=== PATIENT | female | born 1980 | race Hispanic/Latino ===

== ENCOUNTER 2018-06-11 07:08 | Day surgery (SDC) | payer BC ==
[2018-06-09 09:48] LABS: Absolute Monocytes 0.4 K/uL (0.1-1.3); Absolute Neutrophil 3.7 K/uL (1.8-8.0); Basophils % 0.6 % (0-1.3); Eosinophils % 1.8 % (0-4.4); Hematocrit 36.8 % (36.0-45.0); Lymphocytes % 31.7 % (15.3-44.8); MCH 28.7 pg (27.0-35.0); MCV 84.7 fL (80-100); MPV 9.6 fL (7.6-11.3); Monocytes % 5.9 % (3.3-12.3); RBC Red Blood Cell Count 4.34 M/uL (3.86-4.86)
[2018-06-09 10:02] LABS: BUN Blood Urea Nitrogen 10 mg/dL (7-18); Bicarbonate 27 mmol/L (21-32); Glucose Level 109 mg/dL (74-106); Sodium Level 138 mmol/L (136-145)
[2018-06-09 17:47] LABS: Albumin 3.8 g/dL (3.4-5.0); Bilirubin Direct 0.1 mg/dL (0-0.2); Bilirubin Total 0.4 mg/dL (0.2-1.0)
[2018-06-11] MEDS ORDERED: PROPOFOL 200 MG/20 ML VIAL IV ONE (07:20)
[2018-06-11] MEDS ORDERED: Ringers Lactate 1,000 ML IV ONE (07:21)
[2018-06-11] MEDS ORDERED: FENTANYL CITR 100 MCG/2 ML ONE (07:21)
[2018-06-11] MEDS ORDERED: ONDANSETRON HCL 40 MG/20 ML VIAL ONE (07:22)
[2018-06-11] MEDS ORDERED: LIDOCAINE 1% MPF 2 ML AMPULE ONE (07:22)
[2018-06-11] MEDS ORDERED: ROCURONIUM 50 MG/5 ML VIAL IV ONE (07:22)
[2018-06-11] MEDS ORDERED: MIDAZOLAM HCL 2 MG/2 ML INJ ONE (07:22)
[2018-06-11] MEDS: CEFOXITIN/SWI 1gm 1 GM/10 ML SYR ONE ×2 (08:09→08:25)
[2018-06-11] MEDS ORDERED: DEXAMETHASONE 10 MG/ML VIAL ONE (09:28)
[2018-06-11] MEDS ORDERED: GLYCOPYRROLATE 0.2 MG/ML SYR ONE ×2 (09:28)
[2018-06-11] MEDS ORDERED: NEOSTIGMINE 1 MG/ML -5 ML SYRINGE ONE (09:29)
[2018-06-11] MEDS ORDERED: Mastisol Adhesive Liq ONE (09:29)
--- NOTE | 2018-06-11 09:48 | P.BOP ---
Preoperative diagnosis: symptomatic cholelithiasis, cholecystitis Postoperative diagnosis: same Primary procedure: Laparoscopic cholecystectomy Estimated blood loss: <10cc Specimen: gb Findings: as above Anesthesia: General Complications: None Transferred to: Recovery Room Condition: Good
[2018-06-11] MEDS: MEPERIDINE HCL 50 MG/ML AMP ONE ×2 (09:59→10:04)
[2018-06-11] MEDS ORDERED: ONDANSETRON 4 MG/2 ML VIAL ONE (10:01)
[2018-06-11] MEDS: MORPHINE 4 MG/ML SYR ONE ×2 (10:12→10:18)
[2018-06-11] MEDS ORDERED: MORPHINE 4 MG/ML SYR ONE (10:25)
[2018-06-11] MEDS ORDERED: CODEINE 30MG/APAP 300MG TAB ONE (11:03)
--- NOTE | 2018-06-11 16:25 | OP ---
Surgeon: Mannie Lange MD Diagnosis: Symptomatic cholelithiasis, cholecystitis. Procedure: Laparoscopic cholecystectomy. Disposition: Home. Activity: As tolerated. No heavy lifting. Followup: Follow up in my office in 1 week. Call for appointment [phone]. Keep area dry for 48 ho urs, then may shower. Keep Steri-Strips intact. Medications: Include Bactrim DS p.o. b.i.d. and Tylenol No. 3 q.4 hours p.r.n. pain and Phenergan 25 mg p.o. q.6 hours p.r.n. nausea. AGUSTÍN/NANCIE Voice ID: [id number] Report ID: [id number]
--- NOTE | 2018-06-11 16:25 | OP ---
Date of Procedure: 06/11/2018 Surgeon: Mannie Lange MD Preoperative Diagnosis: Symptomatic cholelithiasis and cholecystitis. Postoperative Diagnosis: Symptomatic cholelithiasis and cholecystitis. Procedure: Laparoscopic cholecystectomy. Anesthesia: General plus local. Indications: This is the case of a 38-year-old patient, comes to us with above diagnosis. Fully exp lained the benefits, alternatives, and risks of laparoscopic, possible open cholecystectomy which inc lude, but are not limited to infection, bleeding, damage to adjacent structures, anesthesia complicat ion, choledocholithiasis, bile leak, pancreatitis, [place], and even . She also understands this may not relieve any symptoms. She might need more than one surgical intervention. She understood and s igned the consent. Description Of Procedure: The patient was brought to the operating room and placed in supine positio n. Anesthesia was done without complication. Abdominal area was prepped and draped in a sterile fas hion. Marcaine 0.5% injected for local anesthetic. The patient has a previous abdominoplasty, so we re-opened the incisions in the periumbilical region. Incision was carried down to fascia, which was opened under direct vision. Peritoneum was encountered, opened under direct vision. Vicryl #1 plac ed inside the fascia. Jeanne trocar was carefully introduced. No bleeding was obtained. I placed 3 more trocars, 5 mm each one of them under direct visualization on the right upper quadrant. A grasp er was placed in the fundus of the gallbladder, another grasper in the infundibulum retracting the ga llbladder in the inferolateral fashion exposing triangle of Calot and obtaining critical view of safe ty. The cystic duct and cystic artery were clearly isolated free circumferentially and a connection between those and the gallbladder were clearly identified. I proceeded to ligate those by using at l east 3 clips proximal, 1 clip distal, ligation in the middle. Same was done with the cystic artery. A small tiny branch of the cystic artery was also ligated. Hepatic arteries and common bile duct we re protected at all times. The area was inspected once again. Clips were intact after removing the gallbladder with an EndoCatch and we inspected the area once again. Clips were intact. No bile leak . No bleeding. At that moment, I proceeded to remove the trocars under direct vision. Deflated pne umoperitoneum. Closed the fascia with #1 Vicryl. Irrigated subcutaneous tissue, closed that with 3- 0 chromic, and skin in a subcuticular fashion with 3-0 chromic and Steri-Strips on top. Sponge count and instrument counts were correct. The patient tolerated the procedure well. The patient was sent to recovery in stable condition. AGUSTÍN/NANCIE Voice ID: [id number] Report ID: [id number]
== END 2018-06-11 12:45 | disposition home or self-care (01) ==
LOC: OR 07:08
PROVIDERS: ATTEND Surgery
PROC: 0FT44ZZ Resection of Gallbladder, Percutaneous Endoscopic Approach (ICD-10-PCS; principal; 2018-06-11 08:15)
DX: K80.10 Calculus of gallbladder with chronic cholecystitis without obstruction (principal); R10.11 Right upper quadrant pain
CPT/HCPCS: 36415; 80048; 80076; 82150; 83690; 85025; 88304; J1100; J2001; J2175; J2250; J2405; J2710; J3010

== ENCOUNTER 2023-01-22 08:40 | Emergency (ER) | payer OTHER ==
--- OUTSIDE RECORDS SUMMARY | 2023-01-22 08:46 | XMS REPORT | Continuity of Care Document ---
:1980 Author Organization [facility] t Address [address] [place] [address] Care Team Providers Name Role Phone Radiology Attending Clinician Unavailable RADIOLOGY Attending Clinician Unavailable DR BANDAR CALLAWAY Attending Clinician Unavailable Linda Meraz MD Attending Clinician LINDA MERAZ Attending Clinician Unavailable Doctor Unassigned, [place] Attending Clinician Unavailable DR BANDAR CALLAWAY Admitting Clinician Unavailable Payers Payer Name Policy Type Policy Number Effective Date Expiration Date S ource Problems Condition Condition Condition Status Onset Resolution Last Treating Co mments Source Name Details Category Date Date Treatment Clinician Date Pelvic Pelvic Disease Active Univers pain in pain in 6-21 ity of female female 00:00: [address] Abnormal Abnormal Disease Active Unive rs uterine uterine 04-24 ity of bleeding bleeding 00:00: [place] (AUB) (AUB) 00 [facility] Anemia Anemia Disease Active Univers 04-24 ity of 00:00: [address] S/P S/P Disease Active Univers hysterecto hysterecto 04-24 it y of my my 00:00: [address] Allergies, Adverse Reactions, Alerts Allergy Allergy Status Severity Reaction(s) Onset Inactive Treating Comm ents Source Name Type Date Date Clinician NO KNOWN Drug Active Univers ALLERGIE Class ity of S [facility] No Known DA Active [facility] Allergie Medical s [place] Social History Social Habit Start Date Stop Date Quantity Comments Source Sex Assigned At Universit y of [facility] Exposure to Not sure University of SARS-CoV-2 [facility] (event) [place] Tobacco use and 2016-04-30 2016-04-30 Never used Universit y of exposure 00:00:00 00:00:00 [facility] Alcohol intake 2016-04-30 2016-04-30 Current University of 00:00:00 00:00:00 non-drinker of [facility] alcohol Branch (finding) Smoking Status Start Date Stop Date Source Never smoker [facility] Medical Branch Medications Ordered Filled Start Stop Current Ordering Indication Dosage Frequency Signature Comments Components Source Medication Medication Date Date Medication? Clinician (SIG) Name Name iohexol 2020- No 120mL 120 mL, Unive rs (OMNIPAQUE 2-10 02-10 Intravenou it y of 350 19:30: 19:30 s, ONCE, 1 [place] BULK-150 00 :00 dose, Wed Medica l mL) 12/14/20 at Branch injection 1330, 120 mL Routine metFORMIN Yes 500mg Take 500 Uni vers (GLUCOPHAGE 6-23 mg by ity of ) 500 mg 15:16: mouth 2 [place] tablet 52 (two) Medical times Branch daily with meals. Iron-Folic Yes 1{capsu Take 1 Un ciro Acid-Mv, 6-23 le} capsule by ity o f Min Cmb#15 15:16: mouth [place] (HEMOCYTE-P 52 daily. Medica l ALYSSA) 106 mg Branch iron- 1 mg Cap metFORMIN Yes 500mg Take 500 Uni vers (GLUCOPHAGE 6-23 mg by ity of ) 500 mg 15:16: mouth 2 [place] tablet 52 (two) Medical times Branch daily with meals. Iron-Folic Yes 1{capsu Take 1 Un ciro Acid-Mv, 6-23 le} capsule by ity o f Min Cmb#15 15:16: mouth [place] (HEMOCYTE-P 52 daily. Medica l ALYSSA) 106 mg Branch iron- 1 mg Cap metFORMIN Yes 500mg Take 500 Uni vers (GLUCOPHAGE 6-23 mg by ity of ) 500 mg 15:16: mouth 2 [place] tablet 52 (two) Medical times Branch daily with meals. Iron-Folic Yes 1{capsu Take 1 Un ciro Acid-Mv, 6-23 le} capsule by ity o f Min Cmb#15 15:16: mouth [place] (HEMOCYTE-P 52 daily. Medica l ALYSSA) 106 mg Branch iron- 1 mg Cap acetaminoph Yes 2{tbl} Take 2 Un ciro en-codeine 6-23 tablets by ity of (TYLENOL 00:00: mouth [place] #3) 300-30 00 every 4 Medica l mg tablet (four) Branch hours as needed for Pain (scale 1-3). ibuprofen Yes 800mg Take 1 Unive rs (MOTRIN) 6-23 tablet by ity of 800 mg 00:00: mouth [place] tablet 00 every 8 Medical (eight) Branch hours as needed for Pain (scale 1-3). promethazin Yes 12.5mg Take 10 mL Univers e 6-23 by mouth ity of (PHENERGAN) 00:00: every 4 Michael as 6.25 mg/5 00 (four) Medical mL solution hours as Bran ch needed for Nausea and Vomiting (N/V). acetaminoph Yes 2{tbl} Take 2 Un ciro en-codeine 6-23 tablets by ity of (TYLENOL 00:00: mouth [place] #3) 300-30 00 every 4 Medica l mg tablet (four) Branch hours as needed for Pain (scale 1-3). ibuprofen Yes 800mg Take 1 Unive rs (MOTRIN) 6-23 tablet by ity of 800 mg 00:00: mouth [place] tablet 00 every 8 Medical (eight) Branch hours as needed for Pain (scale 1-3). promethazin Yes 12.5mg Take 10 mL Univers e 6-23 by mouth ity of (PHENERGAN) 00:00: every 4 [place] as 6.25 mg/5 00 (four) Medical mL solution hours as Bran ch needed for Nausea and Vomiting (N/V). acetaminoph Yes 2{tbl} Take 2 Un ciro en-codeine 6-23 tablets by ity of (TYLENOL 00:00: mouth [place] #3) 300-30 00 every 4 Medica l mg tablet (four) Branch hours as needed for Pain (scale 1-3). ibuprofen Yes 800mg Take 1 Unive rs (MOTRIN) 6-23 tablet by ity of 800 mg 00:00: mouth [place] tablet 00 every 8 Medical (eight) Branch hours as needed for Pain (scale 1-3). promethazin Yes 12.5mg Take 10 mL Univers e 6-23 by mouth ity of (PHENERGAN) 00:00: every 4 Michael as 6.25 mg/5 00 (four) Medical mL solution hours as Bran ch needed for Nausea and Vomiting (N/V). Vital Signs Vital Name Observation Time Observation Value Comments Source Height 2020-11-15 07:29:00 154.94 CM Weight 2020-11-15 07:29:00 72.12 KG Height 2020-11-10 12:55:00 154.94 CM Weight 2020-11-10 12:55:00 72.57 KG Procedures Procedure Date / Time Performed Performing Clinician Leonid e CT ABDOMEN PELVIS W WO 2020-12-14 19:28:14 [facility] 2020-12-14 19:21:00 Radiology [facility] CONSENT/REFUSAL FOR 2020-12-14 18:51:00 Doctor Unassigned, [facility] TREATMENT ASSIGNMENT OF BENEFITS 2020-12-14 18:50:49 Doctor Unassigned, No [facility] EXCISION TONSILS 2020-11-15 00:00:00 Estrella Green ical EXTERNAL APPROACH Center EXCISION LT VC 2020-11-15 00:00:00 Estrella Medi carol STORMY/ARTIF OPEN ENDO Center SUPPL LEFT VOCAL CORD 2020-11-15 00:00:00 Munira aldrich Medical AUTO SUB ENDO Center INTRO AI VIA STORMY/ARTIF 2020-11-15 00:00:00 Fantasma vance Medical OPEN ENDO Center XR RIBS 3 VW RIGHT 2020-11-02 18:51:11 Linda Meraz [facility] ASSIGNMENT OF BENEFITS 2020-11-02 18:09:17 Doctor Unassigned, No [facility] Encounters Start End Encounter Admission Attending Care Care Encounter Source Date/Time Date/Time Type Type Clinicians Facility Department ID 2020-12-14 2020-12-14 Hospital Radiology [facility] [id number] Univers 12:55:33 23:59:00 Encounter [place] [id number] ity mary Andrade [id number] Maria Elena [facility] [id number] Medi carol 801 Branch 2020-12-14 2020-12-14 Outpatient R RADIOLOGY [facility] [id number] Univers 00:00:00 00:00:00 [facility] of [place] [facility] 2020-11-15 2020-11-15 Outpatient C CESIA, [facility] [id number] Estrella 07:03:00 14:32:00 [facility] 2020-11-02 2020-11-[address] [facility] [id number] Univers 12:00:00 23:59:00 Encounter [id number] [facility] [id number] [facility] [id number] [facility] 807 [place] 2020-11-02 2020-11-02 Outpatient R [facility] [id number] Univers 00:00:00 00:00:00 [facility] 2020-11-02 2020-11-02 Orders Doctor HUMPHREY [id number] Univers 00:00:00 00:00:00 Only Unassigned, JOSHUA [id number] ity of [place] [facility] [id number] [facility] [id number] [address] Results Test Description Test Time Test Comments Results Result Comments Source POCT CREATININE 2020-12-14 20:20:00 Test Item Value Reference Range Interpretation Comme nts POCT Creatinine (test code = [id number]) 0.6 mg/dL 0.5-1.1 Lab Interpretation (test code = 82276-3) [facility] W WO [id number] 19:41:15CT Abdomen and Pelvis without and with intravenous contrast. CLINICAL HISTORY: Abdominal pain. DOSE:Up-to-date CT equipment and radiation dose reduction techniques wereemployed. CTDIvol: 6.95+6.92 mGy. DLP: 346+345 mGy-cm. TECHNIQUE : Contiguous axial imaging from the level of the lung basesthrough the pubic symphysis were performed initially without contrast andsubsequently after the uncomplicated administration of Omnipaque contrastmaterial. Coronal and sagittal reconstructions were obtained. Auto mAand/or iterative reconstruction were used to reduce radiation dose. FINDINGS: Comparison has beenmade with 06/13/2016 studies. Lower lungs: Clear. No pleural effusion or pericardial effusion. Liver,Gallbladder and Spleen: S/P cholecystectomy. Liver is enlarged, 19cm in length and showed diffuse hepatic steatosis. Spleen measuresapproximately 10.8 x 6 cm. Hepatic/portal venous systems appear patent .Biliary ducts and the pancreatic duct appear of normal size. Peritoneum: ?No free air or free fluid. No lymphadenopathy. Pancreas and Adrenals: ?Unremarkable pancreas and adrenal glands. Kidneys and Ureters: ?No visible calculi in the renal collecting systems. No hydroureter or hydronephrosis. 12 mm low-density lesion in the dorsalcortex of the interpolar region of right kidney is likely a small cyst,slightly increased in size when compared with 2016 study. Vessels: Normal. Retroperitoneum: No abnormal fluid or lymphadenopathy. Bowel: No acute findings. Normal appendix is visualized. Stomach ismoderately distended with food material. Bladder and Reproductive Organs: S/P hysterectomy. Grossly unrem arkable,under distended and unopacified urinary bladder. Bones: Unremarkable. Soft tissues: Suprapubic scar tissue from prior surgery. CONCLUSION:1. No acute intra-abdominal or pelvic abnormalities detected.2. S/P cholecystectomy and hysterectomy.3. Hepatomegaly with hepatic steatosis.4 moderately distended stomach with food material. This could be due torecent meal, however, please correlate with history for possiblegastroparesis with food retention. [facility], Radiant Results Inft User - 12/14/2020 1:42 PM CSTCT Abdomen and Pelvis without and with intravenous contrast.CLINICAL HISTORY: Abdominal pain.DOSE: Up-to-date CT equipment and radiation dose reduction techniques wereemployed. CTDIvol: 6.95+6.92 mGy. DLP: 346+345 mGy-cm.TECHNIQUE : Contiguous axial imaging from the level of the lung basesthrough the pubic symphysis were performed initially without contrast andsubsequently after the uncomplicated administration of Omnipaque contrastmaterial. Coronal and sagittal reconstructions were obtained. Auto mAand/or iterative reconstruction were used to reduce radiation dose.FINDINGS: Comparison has been made with 06/13/2016 studies.Lower lungs: Clear. No pleural effusion or pericardial effusion.Liver, Gallbladder and Spleen: S/P cholecystectomy. Liver is enlarged, 19cm in length and showed diffuse hepatic steatosis. Spleen measuresapproximately 10.8 x 6 cm. Hepatic/portal venous systems appear patent.Biliary ducts and the pancreatic duct appear of normal size.Peritoneum: No free air or free fluid.No lymphadenopathy.Pancreas and Adrenals: Unremarkable pancreas and adrenal glands.Kidneys and Ureters: No visible calculi in the renal collecting systems. No hydroureter or hydronephrosis. 12 mm low-density lesion in the dorsalcortex of the interpolar region of right kidney is likely a small cyst,slightly increased in size when compared with 2016 study. Vessels: Normal.Retroperitoneum: No abnormal fluid or lymphadenopathy.Bowel: No acute findings. Normal appendix is visualized. Stomach ismoderatelydistended with food material.Bladder and Reproductive Organs: S/P hysterectomy. Grossly unremarkable,under distended and unopacified urinary bladder.Bones: Unremarkable.Soft tissues: Suprapubic scar tissue from prior surgery.CONCLUSION:1. No acute intra-abdominal or pelvic abnormalities detected.2. S/P cholecystectomy and hysterectomy.3. Hepatomegaly with hepatic steatosis.4 moderately distended stomach with food material. This could be due torecent meal, however, please correlate with history for possiblegastroparesis with food retention.[facility] 3 VW RIGHT 2020-11-02 20:36:501. ?No evidence of acute injury at the right ribs. 2. ?Right lung is unremarkable. RL: 6600End of report. RL: 6200 ORDERING PHYSICIAN: LISSETTE MERAZ CLINICAL HISTORY:Pleuritic chest pain TECHNIQUE:Radiographs of right ribs, AP and obliqueviews. COMPARISON:None. FINDINGS:Normal right lung. No signs of pleural effusion or pneumothorax. The rightclavicle, scapula, humerus and ribs are unremarkable on all views. No acutefracture evident. Numerous metallic surgical clips at the right upperquadrant abdomen likely from prior cholecystectomy.[facility], Radiant Results Inft User - 11/02/2020 2:38 PM CSTORDERING PHYSICIAN: LINDA GARZAINICAL HISTORY:Pleuritic chest pain TECHNIQUE:Radiographs of right ribs, AP and oblique views. COMPARISON:None .FINDINGS:Normal right lung. No signs of pleural effusion or pneumothorax. The rightclavicle, scapula, humerus and ribs are unremarkable on all views. No acutefracture evident. Numerous metallic surgical clips at the right upperquadrant abdomen likely from prior cholecystectomy.IMPRESSION1. No evidence of acute injury at the right ribs.2. Right lung is unremarkable.RL: 6600End of report.RL: 6200 [facility] UL[facility] [id number] 12:35:04 - DIAG MAMM BILATERAL JANETH CAD DIGITALBILATERAL DIGITAL DIAGNOSTIC MAMMOGRAM 3D/2D WITH CAD: 08/25/2019CLINICAL: Followup to previous exam. Digital breast tomosynthesis was performed in addition to routine CC and MLO views. Current mammographic images were evaluated by either a [employer] M-Vu or a [employer] ImageCheMediSwipeer CAD (computer aided detection system). Comparison is made to exam dated 09/11/2018 mammogram - [facility]. The tissue of both breasts is heterogeneously dense. Thismay lower the sensitivity of mammography. Postoperative changes of prior reduction mammoplasty are again noted.No suspicious mass, architectural distortion, malignant type calcification, or lymph node abnormality detected. INCOMPLETE: ADDITIONAL IMAGING EVALUATION NEEDEDCorrelation was then obtained with same day ultrasound which is reported below.- BREAST ULTRASOUND BILATERALULTRASOUND OF BOTH BREASTS AND BOTH AXILLA: 08/25/2019Comparison is made to exam dated 09/11/2018 mammogram - [facility]. Color flow and real-time ultrasound of both breasts and both axilla were performed. Chan scale images of the real-time examination were reviewed. At the 2 o'clock position of the right breast, 1 cm from the nipple, there is an oval hypoechoic mass measuring 6 x 3 x 5 mm, consistent with a benign fibroadenoma.At the 5 o'clock position of the right breast, 1 cm from the nipple, there is an oval hypoechoic mass measuring 9 x 7 x 6 mm. This is consistent with a benign fibroadenoma.At the 2 o'clock position of the left breast, 1 cm from the nipple, there is an oval hypoechoic mass measu ring 9 x 4 x 7 mm, also consistent with a benign fibroadenoma.No abnormalities were seen sonographically in either axilla. IMPRESSION: BENIGN Benign fibroadenomatous changes. There is no sonographic evidence of malignancy. Resume annual mammogram screening schedule is recommended. Ladonna [place] M.D. yaluis/:08/25/2019 12:35:04 Entry: - 08/28/2019 15:28:20Imaging Technologist: Jennifer LANGE,[facility]-FWletter sent: BIRADS 1-2 Combo FU Letter Mammogram BI-RADS: 0 Incomplete: Additional Imaging Evaluation Needed Ultrasound BI-RADS: 2 BenignDIAG MAMM BILATERAL JANETH CAD [id number] 12:35:04 - DIAG MAMM BILATERAL JANETH CAD DIGITALBILATERAL DIGITAL DIAGNOSTIC MAMMOGRAM 3D/2D WITH CAD: 08/25/2019CLINICAL: Followup to previous exam. Digital breast tomosynthesis was performed in addition to routine CC and MLO views. Current mammographic images were evaluated by either a [employer] M-Vu or a [employer] Image[employer]er CAD (computer aided detection system). Comparison is made to exam dated 09/11/2018 mammogram - [facility]. The tissue of both breasts is heterogeneously dense. Thismay lower the sensitivity of mammography. Postoperative changes of prior reduction mammoplasty are again noted.No suspicious mass, architectural distortion, malignant type calcification, or lymph node abnormality detected. INCOMPLETE: ADDITIONAL IMAGING EVALUATION NEEDEDCorrelation was then obtained with same day ultrasound which is reported below.- BREAST ULTRASOUND BILATERALULTRASOUND OF BOTH BREASTS AND BOTH AXILLA: 08/25/2019Comparison is made to exam dated 09/11/2018 mammogram - [facility]. Color flow and real-time ultrasound of both breasts and both axilla were performed. Chan scale images of the real-time examination were reviewed. At the 2 o'clock position of the right breast, 1 cm from the nipple, there is an oval hypoechoic mass measuring 6 x 3 x 5 mm, consistent with a benign fibroadenoma.At the 5 o'clock position of the right breast, 1 cm from the nipple, there is an oval hypoechoic mass measuring 9 x 7 x 6 mm. This is consistent with a benign fibroadenoma.At the 2 o'clock position of the left breast, 1 cm from the nipple, there is an oval hypoechoic mass measu ring 9 x 4 x 7 mm, also consistent with a benign fibroadenoma.No abnormalities were seen sonographically in either axilla. IMPRESSION: BENIGN Benign fibroadenomatous changes. There is no sonographic evidence of malignancy. Resume annual mammogram screening schedule is recommended. Ladonna gao/:08/25/2019 12:35:04 Entry: - 08/28/2019 15:28:20Imaging Technologist: Jennifer LANGE, [facility]-FWletter sent: BIRADS 1-2 Combo FU Letter Mammogram BI-RADS: 0 Incomplete: Additional Imaging Evaluation Needed Ultrasound BI-RADS: 2 Benign
[2023-01-22] MEDS ORDERED: ONDANSETRON 4 MG (ODT) TAB ONE (09:33)
[2023-01-22 09:34] LABS: Absolute Lymphocytes (CBC) 3.2 K/uL (0.7-4.9); Hematocrit 37.9 % (36.0-45.0); Lymphocytes % 35.2 % (15.3-44.8); MCV 81.8 fL (80-100); MPV 9.1 fL (7.6-11.3); RBC Red Blood Cell Count 4.63 M/uL (3.86-4.86)
[2023-01-22 09:46] LABS: Urine Bacteria <20 /HPF (<20); Urine Bilirubin NEGATIVE (Negative); Urine Blood Negative (Negative); Urine Clarity Clear (Clear); Urine Color Colorless (Yellow); Urine Glucose NEGATIVE (Negative); Urine Mucus Slight /HPF (None Seen); Urine Protein NEGATIVE (Negative); Urine Urobilinogen Normal (Normal)
[2023-01-22 10:06] LABS: Potassium 3.7 mEq/L (3.5-5.1)
[2023-01-22 10:07] LABS: Bilirubin Total 0.7 mg/dL (0.2-1.0)
[2023-01-22 10:08] LABS: Albumin 4.1 g/dL (3.4-5.0); Protein, Total 8.2 g/dL (6.4-8.2)
[2023-01-22] MEDS ORDERED: KETOROLAC 30 MG/ML INJ ONE (11:36)
[2023-01-22] MEDS ORDERED: SIMETHICONE 80 MG TAB ONE (11:36)
--- NOTE | 2023-01-22 12:44 | RAD REPORT ---
EXAM DESCRIPTION: US - Abdomen Exam Limited - 01/22/2023 12:24 pm CLINICAL HISTORY: ABD PAIN COMPARISON: Small Bowel Series dated 08/19/2018 TECHNIQUE: Sonographic grayscale and color flow images of the right upper quadrant were obtained. FINDINGS: The gallbladder has been surgically removed. No fluid collections in the gallbladder bed. The common bile duct is normal measuring 3 mm, without discrete echogenic calculi. The liver demonstrates no findings of intrahepatic biliary dilatation. IMPRESSION: Status post cholecystectomy. No evidence of intra or extrahepatic biliary ductal dilatio n.
--- NOTE | 2023-01-22 13:05 | ER ---
Nurse's Notes [facility] Name: Lulu Torres Age: 42 yrs Sex: Female : 1980 Arrival Date: 01/22/2023 Time: 08:44 Bed 23 Private MD: Diagnosis: Biliary colic Presentation: 01/22 09:01 Chief complaint: Patient states: RUQ pain radiating to flank, feels sharp , worse since iw yesterday and has been vomiting , has had an issue liver in past , elevated enzymes, hx of cholecystectomy. Coronavirus screen: At this time, the client does not indicate any symptoms associated with coronavirus-19. Ebola Screen: Patient negative for fever greater than or equal to 101.5 degrees Fahrenheit, and additional compatible Ebola Virus Disease symptoms Patient denies exposure to infectious person. Patient denies travel to an Ebola-affected area in the 21 days before illness onset. No symptoms or risks identified at this time. Initial Sepsis Screen: Does the patient meet any 2 criteria? No. Patient's initial sepsis screen is negative. Does the patient have a suspected source of infection? No. Patient's initial sepsis screen is negative. Risk Assessment: Do you want to hurt yourself or someone else? Patient reports no desire to harm self or others. Onset of symptoms was January 21, 2023. 09:01 Method Of Arrival: Ambulatory iw 09:01 Acuity: CHANCE 3 iw Triage Assessment: 13:06 General: Appears in no apparent distress. Behavior is calm, cooperative, appropriate tw5 for age, Reports "The pain came back a little bit, but it is much better after you gave me the medication.". Neuro: Level of Consciousness is awake, alert, obeys commands. Historical: - Allergies: 09: No Known Allergies; iw - Home Meds: 09: Omeprazole Oral [Active]; Dicyclomine Oral [Active]; Ondansetron Oral [Active]; iw sertraline oral [Active]; - PMHx: 09: IBS; iw - PSHx: 09: Cholecystectomy; Tonsillectomy; iw - Immunization history:: Flu vaccine is up to date. - Social history:: Smoking status: Patient denies any tobacco usage or history of. Screenin:38 [facility] ED Fall Risk Assessment (Adult) History of falling in the last 3 months, tw5 including since admission No falls in past 3 months (0 pts). Abuse screen: Denies threats or abuse. Denies injuries from another. Nutritional screening: No deficits noted. Tuberculosis screening: No symptoms or risk factors identified. Assessment: 11:38 General: Reports "The pain started over the weekend, but it has gotten worse. I called tw5 my doctor and he stated that I should just come to the ER. I now longer have my gallbladder so I don't know why I am having this burning pain in my side. It is very concerning to me.". Pain: Complains of pain in posterior aspect of right lateral abdomen and anterior aspect of right lateral abdomen Pain currently is 7 out of 10 on a pain scale. Pain began 2-3 days ago. Neuro: Level of Consciousness is awake, alert, obeys commands, Oriented to person, place, time, situation. Cardiovascular: No deficits noted. Respiratory: No deficits noted. GI: Bowel sounds present X 4 quads. Abdomen is tender to palpation in posterior aspect of right lateral abdomen. Derm: No deficits noted. Musculoskeletal: No deficits noted. 11:44 General: Noted pt the only thing she is waiting on is the US. tw5 13:33 Reassessment: Patient states feeling better. tw5 Vital Signs: 09:01 BP 132 / 99; Pulse 85; Resp 16; Temp 98; Pulse Ox 100% on R/A; Weight 81.65 kg; Height iw 5 ft. 0 in. ; Pain 8/10; 11:38 BP 125 / 81; Pulse 77; Resp 18; Pulse Ox 99% on R/A; Pain 7/10; tw5 13:07 Pain 5/10; tw5 13:33 BP 116 / 90; Pulse 79; Resp 18; Pulse Ox 100% on R/A; Pain 5/10; tw5 09:01 Body Mass Index 35.15 (81.65 kg, 152.4 cm) iw 09:01 Pain Scale: Adult iw 11:38 Pain Scale: Adult tw5 13:07 Pain Scale: Adult tw5 13:33 Pain Scale: Adult tw5 ED Course: 08:44 Patient arrived in ED. rg4 08:54 Desirae Turner FNP-C [facility]. snw 08:54 Alan Lara MD is Attending Physician. snw 09:02 Triage completed. iw 09:04 Arm band placed on. iw 11:24 Dina Sutton is Primary Nurse. tw5 11:38 Patient has correct armband on for positive identification. Bed in low position. Call tw5 light in reach. Side rails up X 1. Pulse ox on. NIBP on. Door closed. Moved to private room. Warm blanket given. Verbal reassurance given. 11:38 IV is patent, is intact, with fluids infusing freely. tw5 12:25 Abdomen Limited In Process Unspecified. EDMS 13:04 López Ellis MD is Referral Physician. snw 13:07 No provider procedures requiring assistance completed. tw5 13:33 IV discontinued, intact, bleeding controlled, No redness/swelling at site. Pressure tw5 dressing applied. Administered Medications: 09:29 Drug: Ondansetron PO 4 mg Route: PO; iw 13:07 Follow up: Response: No adverse reaction tw5 11:38 Drug: Ketorolac IVP 15 mg Route: IVP; Site: left antecubital; tw5 13:07 Follow up: Pain 5/10 Adult; Response: No adverse reaction; Pain is decreased tw5 11:38 Drug: Simethicone PO 240 mg Route: PO; tw5 13:07 Follow up: Response: No adverse reaction tw5 Medication: 11:38 VIS not applicable for this client. tw5 Outcome: 13:04 Discharge ordered by . snw 13:33 Discharged to home ambulatory. tw5 13:33 Condition: improved 13:33 Discharge instructions given to patient, Instructed on discharge instructions, follow up and referral plans. medication usage, Demonstrated understanding of instructions, follow-up care, medications, Prescriptions given X 2. 13:38 Patient left the ED. tw5 Signatures: Dispatcher [employer] EDME Desirae Turner, GILL NET STRINGERGeniC GILL NET STRINGER-Csnw Bri Mcnally, RN RN Ruth Julio rg4 Dina Sutton tw5
--- NOTE | 2023-01-22 13:05 | EDPHYS ---
Physician Documentation [facility] Name: Lulu Torres Age: 42 yrs Sex: Female : 1980 Arrival Date: 01/22/2023 Time: 08:44 Bed 23 Private MD: ED Physician Alan Lara HPI: 01/22 09:28 This 42 yrs old Female presents to ER via Ambulatory with complaints of snw Abdominal Pain. 09:28 The patient presents with abdominal pain in the epigastric area, in the upper abdomen. snw Onset: The symptoms/episode began/occurred acutely. The symptoms radiate to right back. Associated signs and symptoms: Pertinent positives: nausea, vomiting, and diarrhea. The symptoms are described as burning, stabbing, throbbing. Severity of pain: At its worst the pain was moderate severe. The patient has experienced similar episodes in the past, chronically, but today's symptoms are worse, more painful. The patient has not recently seen a physician, sees Dr. Ellis, cholecystectomy 3 years ago. Chronic diarrhea since. Historical: - Allergies: 09:02 No Known Allergies; iw - Home Meds: 09:02 Omeprazole Oral [Active]; Dicyclomine Oral [Active]; Ondansetron Oral [Active]; iw sertraline oral [Active]; - PMHx: 09:02 IBS; iw - PSHx: 09:02 Cholecystectomy; Tonsillectomy; iw - Immunization history:: Flu vaccine is up to date. - Social history:: Smoking status: Patient denies any tobacco usage or history of. ROS: 09:27 Constitutional: Negative for fever, chills, and weight loss, Eyes: Negative for injury, snw pain, redness, and discharge, ENT: Negative for injury, pain, and discharge, Neck: Negative for injury, pain, and swelling, Cardiovascular: Negative for chest pain, palpitations, and edema, Respiratory: Negative for shortness of breath, cough, wheezing, and pleuritic chest pain, : Negative for injury, bleeding, discharge, and swelling, MS/Extremity: Negative for injury and deformity, Skin: Negative for injury, rash, and discoloration, Neuro: Negative for headache, weakness, numbness, tingling, and seizure, Psych: Negative for depression, anxiety, suicide ideation, homicidal ideation, and hallucinations. 09:27 Abdomen/GI: Positive for abdominal pain, nausea, vomiting, diarrhea, of the posterior aspect of right lateral abdomen and right upper quadrant. Exam: 09:26 Constitutional: This is a well developed, well nourished patient who is awake, alert, snw and in no acute distress. Head/Face: Normocephalic, atraumatic. Eyes: Pupils equal round and reactive to light, extra-ocular motions intact. Lids and lashes normal. Conjunctiva and sclera are non-icteric and not injected. Cornea within normal limits. Periorbital areas with no swelling, redness, or edema. ENT: Nares patent. No nasal discharge, no septal abnormalities noted. Tympanic membranes are normal and external auditory canals are clear. Oropharynx with no redness, swelling, or masses, exudates, or evidence of obstruction, uvula midline. Mucous membranes moist. Neck: Trachea midline, no thyromegaly or masses palpated, and no cervical lymphadenopathy. Supple, full range of motion without nuchal rigidity, or vertebral point tenderness. No Meningismus. Chest/axilla: Normal chest wall appearance and motion. Nontender with no deformity. No lesions are appreciated. Cardiovascular: Regular rate and rhythm with a normal S1 and S2. No gallops, murmurs, or rubs. Normal PMI, no JVD. No pulse deficits. Respiratory: Lungs have equal breath sounds bilaterally, clear to auscultation and percussion. No rales, rhonchi or wheezes noted. No increased work of breathing, no retractions or nasal flaring. Back: No spinal tenderness. No costovertebral tenderness. Full range of motion. Skin: Warm, dry with normal turgor. Normal color with no rashes, no lesions, and no evidence of cellulitis. MS/ Extremity: Pulses equal, no cyanosis. Neurovascular intact. Full, normal range of motion. Neuro: Awake and alert, GCS 15, oriented to person, place, time, and situation. Cranial nerves II-XII grossly intact. Motor strength 5/5 in all extremities. Sensory grossly intact. Cerebellar exam normal. Normal gait. Psych: Awake, alert, with orientation to person, place and time. Behavior, mood, and affect are within normal limits. 09:26 Abdomen/GI: Inspection: abdomen appears normal, Bowel sounds: normal, Palpation: moderate abdominal tenderness, in the posterior aspect of right lateral abdomen and right upper quadrant. Vital Signs: 09:01 BP 132 / 99; Pulse 85; Resp 16; Temp 98; Pulse Ox 100% on R/A; Weight 81.65 kg; Height iw 5 ft. 0 in. ; Pain 8/10; 11:38 BP 125 / 81; Pulse 77; Resp 18; Pulse Ox 99% on R/A; Pain 7/10; tw5 13:07 Pain 5/10; tw5 13:33 BP 116 / 90; Pulse 79; Resp 18; Pulse Ox 100% on R/A; Pain 5/10; tw5 09:01 Body Mass Index 35.15 (81.65 kg, 152.4 cm) iw 09:01 Pain Scale: Adult iw 11:38 Pain Scale: Adult tw5 13:07 Pain Scale: Adult tw5 13:33 Pain Scale: Adult tw5 MDM: 09:13 Patient medically screened. snw 13:05 Differential diagnosis: gastroesophageal reflux disease, pancreatitis, urinary tract snw infection. Data reviewed: vital signs, nurses notes. Counseling: I had a detailed discussion with the patient and/or guardian regarding: the historical points, exam findings, and any diagnostic results supporting the discharge/admit diagnosis, lab results, radiology results, the need for outpatient follow up, for definitive care, to return to the emergency department if symptoms worsen or persist or if there are any questions or concerns that arise at home. Special discussion: Based on the patient's Hx, exam, and Dx evaluation, there is no indication for emergent surgery or inpatient Tx. It is understood by the patient/guardian that if the Sx's persist or worsen they need to return immediately for re-evaluation. Based on the history and exam findings, there is no indication for further emergent testing or inpatient evaluation. I discussed with the patient/guardian the need to see the trimming machine set up operator for further evaluation of the symptoms. I discussed with the patient/guardian the need to see the primary care provider for further evaluation of the symptoms. 01/22 09:13 Order name: CBC with Diff; Complete Time: 09:50 snw 01/22 09:13 Order name: CMP; Complete Time: 10:14 snw 01/22 09:13 Order name: Lipase; Complete Time: 10:14 snw 01/22 09:13 Order name: Lipid Profile; Complete Time: 10:14 snw 01/22 09:13 Order name: UA; Complete Time: 09:50 snw 01/22 09:17 Order name: PREGU; Complete Time: 09:53 snw 01/22 09:50 Order name: Urine Culture EDMS 01/22 11:43 Order name: US Abdomen Limited; Complete Time: 12:50 snw 01/22 09:13 Order name: IV Saline Lock; Complete Time: 09:29 snw 01/22 09:13 Order name: Labs collected and sent; Complete Time: 09:29 snw Administered Medications: 09:29 Drug: Ondansetron PO 4 mg Route: PO; iw 13:07 Follow up: Response: No adverse reaction tw5 11:38 Drug: Ketorolac IVP 15 mg Route: IVP; Site: left antecubital; tw5 13:07 Follow up: Pain 5/10 Adult; Response: No adverse reaction; Pain is decreased tw5 11:38 Drug: Simethicone PO 240 mg Route: PO; tw5 13:07 Follow up: Response: No adverse reaction tw5 Disposition: 17:46 Co-signature as Attending Physician, Alan Lara MD I reviewed the patient's care rn provided by the Advanced Practice Provider and agree with the diagnosis and treatment plan. Disposition Summary: 01/22/23 13:04 Discharge Ordered Location: Home snw Problem: an acute exacerbation snw Symptoms: are unchanged snw Condition: Stable snw Diagnosis - Biliary colic snw Followup: snw - With: Emergency Department - When: As needed - Reason: Worsening of condition Followup: snw - With: - When: 2 - 3 days - Reason: Recheck today's complaints, Continuance of care, Re-evaluation by your physician Discharge Instructions: - Discharge Summary Sheet snw - Biliary Colic, Adult snw Forms: - Medication Reconciliation Form snw - Thank You Letter snw - Antibiotic Education snw - Prescription Opioid Use snw - Work release form tw5 Prescriptions: - Gas-X Extra Strength 125 mg Oral capsule - take 2 capsule by ORAL route every day at bedtime as needed for abdominal snw distention; 30 capsule; Refills: 0, Product Selection Permitted - Zofran 4 mg Oral Tablet - take 1 tablet by ORAL route 3-4 times daily As needed; 20 tablet; Refills: 0, snw Product Selection Permitted Signatures: Dispatcher [employer] EDMS Desirae Turner, ANESTHESIA ASSISTANT-C ANESTHESIA ASSISTANT-Csnw Bri Mcnally RN RN iw Nieto, Roman, MD MD rn Wood, Tiffany tw5 Corrections: (The following items were deleted from the chart) 09:32 09:14 Urinalysis+U.LAB.BRZ ordered. EDMS EDMS 09:34 09:14 Urine Microscopic+U.LAB.BRZ ordered. EDMS EDMS
[2023-01-22 15:41] VITALS: TEMP 98
[2023-01-22 15:44] VITALS: BP 116/90; O2SAT 100
== END 2023-01-22 13:38 | disposition home or self-care (01) ==
LOC: ER 08:40
DX: K80.50 Calculus of bile duct without cholangitis or cholecystitis without obstruction (principal)
CPT/HCPCS: 87088; 85025; 81001; 87086; 36415; 81025; 80061; 83690; 80053; 76705; Q0162; 96374; 99284